=== PATIENT | female | born 1950 | race African-American/Black ===

== ENCOUNTER 2017-06-16 17:29 | Emergency (ER) | payer MEDICAID ==
[2017-06-16 18:02] LABS: APPEARANCE HAZY (CLEAR); BILIRUBIN NEGATIVE (NEGATIVE); COLOR YELLOW (YELLOW); GLUCOSE NEGATIVE (NEGATIVE); KETONE MODERATE mg/dL (NEGATIVE); NITRITE NEGATIVE (NEGATIVE); PROTEIN NEGATIVE (NEGATIVE); SPECIFIC GRAVITY 1.005 (1.005-1.020); UROBILINOGEN NORMAL (NORMAL)
[2017-06-16 18:06] LABS: BACTERIA MANY /hpf (NONE SEEN); RED CELLS - URINE 0-5 /hpf (0-5)
[2017-06-16 18:07] LABS: WHITE CELLS - URINE >50 /hpf (0-5)
[2017-06-16 20:07] LABS: BASOPHILS 0.2 % (0-2); EOSINOPHILS 2.8 % (0-7); HEMATOCRIT 32.7 % (36.0-48.0); HEMOGLOBIN 11.9 g/dL (12-16); IMMATURE GRANULOCYTES 0.1 % (0-5); LYMPHOCYTES 21.6 % (15-50); MCH 24.9 pg (26.0-34.0); MCHC 36.4 g/dL (31.0-37.0); MCV 68.4 fL (80.0-100.0); MEAN PLATELET VOLUME 9.3 fL (7.4-10.4); MONOCYTES 7.1 % (2-11); NEUTROPHILS 68.2 % (40-80); PLATELET COUNT 226 10x3/uL (130-400); RBC 4.78 10x6/uL (4.00-5.40); RDW 19.5 % (11.5-14.5); WBC 8.2 10x3/uL (4.8-10.8)
[2017-06-16 20:20] LABS: ALBUMIN 3.7 g/dL (3.4-5.0); ALKALINE PHOSPHATASE 125 U/L (46-116); ALT (SGPT) 19 U/L (10-68); BILIRUBIN - TOTAL 0.57 mg/dL (0.2-1.3); CALC OSMOLALITY 276 mosm/kg (275-300); CALCIUM 9.6 mg/dL (8.5-10.1); CARBON DIOXIDE 29.8 mmol/L (21.0-32.0); CHLORIDE - SERUM 103 mmol/L (98-107); CREATININE - SERUM 0.5 mg/dL (0.6-1.3); GLUCOSE 104 mg/dL (74-106); POTASSIUM - SERUM 4.5 mmol/L (3.5-5.1); PROTEIN - SERUM 7.9 g/dL (6.4-8.2); SODIUM 140 mmol/L (136-145); UREA NITROGEN 6 mg/dL (7-18); eGFR NON AFRICAN AMERICAN > 90 mL/min (90-120)
== END 2017-06-16 21:34 | disposition home or self-care (01) ==
LOC: D.ER 17:29
PROVIDERS: Emergency Medicine; Family Medicine
DX: N39.0 Urinary tract infection, site not specified (principal)

== ENCOUNTER 2019-04-29 17:45 | Inpatient (IN) | payer MEDICARE ==
[~2019-04-29] VITALS: Ht 167.6 cm; Wt 89.1 kg
[2019-04-29 18:56] LABS: BASOPHILS 0.2 % (0-2); EOSINOPHILS 3.2 % (0-7); HEMATOCRIT 33.6 % (36.0-48.0); HEMOGLOBIN 12.2 g/dL (12-16); IMMATURE GRANULOCYTES 0.2 % (0-5); LYMPHOCYTES 20.3 % (15-50); MCH 25.3 pg (26.0-34.0); MCHC 36.3 g/dL (31.0-37.0); MCV 69.6 fL (80.0-100.0); MEAN PLATELET VOLUME 9.6 fL (7.4-10.4); MONOCYTES 6.3 % (2-11); NEUTROPHILS 69.8 % (40-80); PLATELET COUNT 188 10x3/uL (130-400); RBC 4.83 10x6/uL (4.00-5.40); RDW 20.3 % (11.5-14.5); WBC 8.1 10x3/uL (4.8-10.8)
[2019-04-29 19:10] LABS: CALC OSMOLALITY 286 mosm/kg (275-300); CALCIUM 8.9 mg/dL (8.5-10.1); CARBON DIOXIDE 25.8 mmol/L (21.0-32.0); CHLORIDE - SERUM 106 mmol/L (98-107); CREATININE - SERUM 0.5 mg/dL (0.6-1.3); GLUCOSE 96 mg/dL (74-106); POTASSIUM - SERUM 4.1 mmol/L (3.5-5.1); SODIUM 143 mmol/L (136-145); UREA NITROGEN 18 mg/dL (7-18); eGFR NON AFRICAN AMERICAN > 90 mL/min (90-120)
[2019-04-29 19:18] VITALS: BP 139/103
[2019-04-29 19:21] LABS: AMYLASE - SERUM 39 U/L (25-115); LIPASE 90 U/L (73-393); TROPONIN-I < 0.017 ng/mL (0.000-0.060)
--- NOTE | 2019-04-29 19:55 | NUR ---
pt to ct at this time.
[2019-04-29 20:35] VITALS: BP 176/72
[2019-04-29 21:08] VITALS: BP 182/74
--- NOTE | 2019-04-29 21:08 | NUR ---
IN AND OUT CATH FOR URINE SPECIMEN. STERILE FIELD MAINTAINED. APPROX 50 ML OF CLEAR, YELLOW URINE AT INSERTION, SAMPLE SENT TO LAB, PT TOLERATED WELL. DENIES NEEDS, CALL LIGHT WITHIN REACH, WILL CONTINUE TO MONITOR.
[2019-04-29 21:55] LABS: APPEARANCE CLEAR (CLEAR); BILIRUBIN NEGATIVE (NEGATIVE); COLOR YELLOW (YELLOW); GLUCOSE NEGATIVE (NEGATIVE); KETONE NEGATIVE (NEGATIVE); NITRITE NEGATIVE (NEGATIVE); PROTEIN NEGATIVE (NEGATIVE); UROBILINOGEN NORMAL (NORMAL)
[2019-04-29 21:56] LABS: BACTERIA MODERATE /hpf (NEGATIVE); EPITHELIAL CELLS 0-5 /hpf (0-5); RED CELLS - URINE OCC /hpf (0-5); WHITE CELLS - URINE 0-5 /hpf (NEGATIVE)
[2019-04-29 22:26] VITALS: BP 153/73
[2019-04-30 01:13] VITALS: BP 159/77; Ht 167.6 cm; Wt 89.1 kg
[2019-04-30 04:56] VITALS: BP 162/75
--- NOTE | 2019-04-30 05:46 | NUR ---
0015) rec'd via stretcher from er alert and oriented speech garbled at times talks very fast.incontinent of urine pericare and linen chge.no shinbreakage noted. will continue to observe for any chges and follow current plan of care.
[2019-04-30 06:41] LABS: ALBUMIN 3.5 g/dL (3.4-5.0); ALKALINE PHOSPHATASE 119 U/L (46-116); ALT (SGPT) 9 U/L (10-68); BILIRUBIN - TOTAL 0.79 mg/dL (0.2-1.3); CALC OSMOLALITY 279 mosm/kg (275-300); CALCIUM 8.8 mg/dL (8.5-10.1); CARBON DIOXIDE 27.1 mmol/L (21.0-32.0); CHLORIDE - SERUM 107 mmol/L (98-107); CREATININE - SERUM 0.3 mg/dL (0.6-1.3); GLUCOSE 96 mg/dL (74-106); POTASSIUM - SERUM 3.9 mmol/L (3.5-5.1); PROTEIN - SERUM 7.6 g/dL (6.4-8.2); SODIUM 141 mmol/L (136-145); UREA NITROGEN 11 mg/dL (7-18); eGFR NON AFRICAN AMERICAN > 90 mL/min (90-120)
[2019-04-30 07:37] LABS: BASOPHILS 0.3 % (0-2); EOSINOPHILS 4.4 % (0-7); HEMATOCRIT 33.8 % (36.0-48.0); HEMOGLOBIN 12.1 g/dL (12-16); IMMATURE GRANULOCYTES 0.3 % (0-5); LYMPHOCYTES 27.8 % (15-50); MCH 24.8 pg (26.0-34.0); MCHC 35.8 g/dL (31.0-37.0); MCV 69.3 fL (80.0-100.0); MONOCYTES 5.8 % (2-11); NEUTROPHILS 61.4 % (40-80); PLATELET COUNT 162 10x3/uL (130-400); RBC 4.88 10x6/uL (4.00-5.40); RDW 20.4 % (11.5-14.5); WBC 7.1 10x3/uL (4.8-10.8)
--- NOTE | 2019-04-30 08:10 | NUR ---
REPORT RECIEVED. PT RESTING QUIETLY. RISE AND FALL OF CHEST NOTED. PT HAS A R HAND PIV THAT IS SL. RR EVEN AND UNLABORED NO DISTRESS NOTED. BED LOCKED AND IN LOWEST POSITION, CALL LIGHT WITHIN REACH. WILL CTM
[2019-04-30 12:20] VITALS: BP 150/78
[2019-04-30 12:27] VITALS: BP 143/70
--- NOTE | 2019-04-30 13:08 | NUR ---
PT HAS A 3 LARGE LIGHT BROWN LIQUID BM SINCE 0800. SPOKE TO SLAVA TAI, HE DID NOT WANT ME TO GIVE THE SOAP KI ENEMA AT THIS TIME. WLL CTM
[2019-04-30 15:58] VITALS: BP 156/89
--- NOTE | 2019-04-30 16:42 | NUR ---
I have reviewed this patient and I concur with the Shift Assessment completed by the Licensed Practical Nurse today this shift.
--- NOTE | 2019-04-30 19:48 | NUR ---
REPORT RECEIVED, WILL CONTINUE POC. PATIENT IS AAOX4, SEMI-FOWLERS POSITION. SENIOR OFFICER AT BEDSIDE, PATIENT JUST HAD BM AND WAS CLEANED UP. NO S/S OF DISTRESS OBSERVED, RR EVEN AND UNLABORED ON ROOM AIR. PATIENT ASKING FOR TYLENOL. PATIENT DENIES OTHER NEEDS. CL IN REACH, BED LOCKED AND LOWERED. WILL CTM.
[2019-04-30 20:39] VITALS: BP 172/82
[2019-05-01 00:15] VITALS: BP 145/71
--- NOTE | 2019-05-01 03:09 | NUR ---
I have reviewed this patient and I concur with the Shift Assessment completed by the Licensed Practical Nurse today this shift.
[2019-05-01 04:45] VITALS: BP 151/51
[2019-05-01 07:50] VITALS: BP 162/91
--- NOTE | 2019-05-01 07:55 | NUR ---
REPORT RECEIVED. WILL CONTINUE WITH POC. PT CURRENTLY LYING SUPINE. CALL LIGHT W/I REACH. PT IS AAO. RR EVEN AND UNLABORED ON RA. R.HAND PIV IS SALINE LOCKED. NO S/S OF DISTRESS NOTED. PT DENIES ANY NEEDS. WILL CTM.
--- NOTE | 2019-05-01 09:56 | MORECARE ---
CASE MANAGEMENT DISCHARGE SUMMARY PATIENT: MYA AGUILAR UNIT: [id number] ADM DATE: 04/30/19 AGE: 68 : 50 SEX: F ROOM/BED: D.2100 AUTHOR: MERRITT VILLAVICENCIO PHYSICIAN: REFERRING PHYSICIAN: ARIAN MONTANA MD DATE OF SERVICE: 05/01/19 Discharge Plan Patient Name: MYA AGUILAR [facility] [facility] 1950 Planned Disposition: Nursing Facility ARACELI Cert Anticipated Discharge Date: 05/01/19 Discharge Date: Expected LOS: 1 Initial Reviewer: [email or web address] Initial Review Date: 04/29/2019 Generated: 05/01/19 10:56 am External [facility] Next Contact Date: 05/01/2019 Service Request Date: Service Type: Resolution: Reviewer: Comments: Patient Name: MYA AGUILAR Page 19202 at 0956 All edits/amendments must be made on the electronic document DICTATION DATE: 05/01/19955 SEASONAL SALES ASSOCIATE: MAURISIO 05/01/19955 RPT#: [id number] PR DATE: STATUS: ADM IN [facility] [address] [place] [address] END OF REPORT
--- NOTE | 2019-05-01 10:03 | MORECARE ---
CASE MANAGEMENT DISCHARGE SUMMARY PATIENT: MYA AGUILAR UNIT: [id number] ADM DATE: 04/30/19 AGE: 68 : 50 SEX: F ROOM/BED: D.2104 AUTHOR: MERRITT VILLAVICENCIO PHYSICIAN: REFERRING PHYSICIAN: ARIAN MONTANA MD DATE OF SERVICE: 05/01/19 Discharge Plan Patient Name: MYA AGUILAR [facility] : 1950 Planned Disposition: Nursing Facility ARACELI Cert Anticipated Discharge Date: 05/01/19 Discharge Date: Expected LOS: 1 Initial Reviewer: [email or web address] Initial Review Date: 04/29/2019 Generated: 05/01/19 11:02 am DCPIA - Discharge Planning Initial Assessment Updated by [id number]: Donnie Tran on 05/01/19 10:01 am * Is the patient Alert and Oriented? Yes * How many steps to enter\exit or inside your home? NONE * PCP DR. MONTANA * Pharmacy [facility] [place] * Preadmission Environment Sales Support Coordinator Mcc * Facility Name [facility] * ADLs Total Dependent * Equipment Other * Other Equipment ALL MEDICAL EQUIPMENT PROVIDED BY [facility] * List name and contact numbers for known caregivers / representatives who currently or will assist patient after discharge: SATURDAY JAMES ANTHONYR, * Verbal permission to speak to the caregivers and representatives has been obtained from the patient. Yes * Community resources currently utilized None * Please name any agencies selected above. NONE * Additional services required to return to the preadmission environment? No * Can the patient safely return to the preadmission environment? Yes * Has this patient been hospitalized within the prior 30 days at any hospital? No Last DP export: 05/01/19 8:56 Patient Name: MYA AGUILAR Page 46043 at 1003 All edits/amendments must be made on the electronic document DICTATION DATE: 05/01/19 1002 TEACHING ARTIST: MAURISIO 05/01/19 1002 RPT#: [id number] DC DATE: STATUS: ADM IN [facility] [address] [place] [address] END OF REPORT
--- NOTE | 2019-05-01 10:10 | MORECARE ---
CASE MANAGEMENT DISCHARGE SUMMARY PATIENT: MYA AGUILAR UNIT: [id number] ADM DATE: 04/30/19 AGE: 68 : 50 SEX: F ROOM/BED: D.8502 AUTHOR: SAUD,DOC PHYSICIAN: REFERRING PHYSICIAN: ARIAN MONTANA MD DATE OF SERVICE: 05/01/19 Discharge Plan Patient Name: MYA AGUILAR Facility: [facility]:[place] : 1950 Planned Disposition: Nursing Facility ARACELI Cert Anticipated Discharge Date: 05/01/19 Discharge Date: Expected LOS: 1 Initial Reviewer: YUNIER Initial Review Date: 04/29/2019 Generated: 05/01/19 11:09 am Comments DCP- Discharge Planning Updated by [id number]: Donnie Tran on 05/01/19 9:[address] Patient Name: MYA AGUILAR Admission Status: ER Accout number: [id number] Admission Date: 04-30-2019 : 1950 Admission Diagnosis: Attending: ARIAN MONTANA Current LOS: 1 Anticipated DC Date: 05-01-2019 Planned Disposition: Nursing Facility ARACELI Cert Primary Insurance: MEDICARE A & B PLANNED EXTERNAL PROVIDER: [facility], LIGHT BULB REPLACER CARE RETURN Discharge Planning Comments: CM RECEIVED DISCHARGE ORDER, MET WITH PT IN ROOM. PT REPORTS LIVING AT [facility] FOR A "LONG TIME". PT'S EMERGENCY CONTACT IS SATURDAY. [facility] TODAY. PT WAS NOT ABLE TO SIGN THE CONSENT FORM. CM CALLED PT'S DAUGHTER, SATURDAY RAJ, , LEFT MESSAGE ASKING FOR RETURN CALL. CM CALLED [facility], , SPOKE TO DIANE, NURSE, WHO INFORMED CM THAT PT IS [facility] LIGHT BULB REPLACER CARE PATIENT. THEY WILL ACCEPT TODAY. CM FAXED DISCHARGE INFORMATION TO [facility], . NURSE REPORT TO BE CALLED TO DIANE OF [facility], . PT TO TRANSPORT VIA AMBULANCE. Wellness Nurse Rn: Donnie Tran DCPIA - Discharge Planning Initial Assessment Updated by [id number]: Donnie Tran on 05/01/19 10:01 am * Is the patient Alert and Oriented? Yes * How many steps to enter\\exit or inside your home? NONE * PCP DR. MONTANA * Pharmacy [facility] [place] * Preadmission Environment [facility]ci * Facility Name [facility] * ADLs Total Dependent * Equipment Other * Other Equipment ALL MEDICAL EQUIPMENT PROVIDED BY FACILTY * List name and contact numbers for known caregivers / representatives who currently or will assist patient after discharge: SATURDAY JAMES ANTHONYR, * Verbal permission to speak to the caregivers and representatives has been obtained from the patient. Yes * Community resources currently utilized None * Please name any agencies selected above. NONE * Additional services required to return to the preadmission environment? No * Can the patient safely return to the preadmission environment? Yes * Has this patient been hospitalized within the prior 30 days at any hospital? No Coverage Notice Reviewer: [id number] - Donnie Tran Notice Issued Date-Time: 05/01/2019 9:23 Notice Type: Patient Choice Letter Notice Delivered To: Patient Relationship to Patient: Pitch Gatherer Name: Delivery Method: HAND - Hand Delivered Tish Days: Prior Verbal Notification: Recipient Understood Notice: Yes Recipient Signature: Med Rec Note Co-signed by Attending: Coverage Notice Comment: [facility] Last DP export: 05/01/19 9:03 Patient Name: MYA AGUILAR Page 80180 at 1010 All edits/amendments must be made on the electronic document DICTATION DATE: 05/01/19 100 PIERCING MACHINE OPERATOR: MAURISIO 05/01/19 100 RPT#: [id number] DC DATE: STATUS: ADM IN [facility] [address] [place] [address] END OF REPORT
--- NOTE | 2019-05-01 10:36 | NUR ---
ATTEMPTED TO CALL REPORT TO [facility] TWICE. NO ANSWER. WILL CONTINUE ATTEMPTING TO CALL. WILL CTM.
--- NOTE | 2019-05-01 11:10 | NUR ---
PT DISCHARGED BACK TO [facility] VIA STRETCHER WITH [employer] [facility]. ALL BELONGINGS TAKEN WITH PT. PIV REMOVED WITH CATHETER TIP FULLY INTACT. ATTEMPTED TO CALL REPORT FIVE DIFFERENT TIMES AND WAS NEVER ABLE TO GET IN TOUCH. DISCHARGE PAPERWORK SENT WITH [employer].
--- NOTE | 2019-05-01 12:23 | MORECARE ---
CASE MANAGEMENT DISCHARGE SUMMARY PATIENT: MYA AGUILAR UNIT: [id number] ADM DATE: 04/30/19 AGE: 68 : 50 SEX: F ROOM/BED: D.2106 AUTHOR: SAUD,DOC PHYSICIAN: REFERRING PHYSICIAN: ARIAN MONTANA MD DATE OF SERVICE: 05/01/19 Discharge Plan Patient Name: MYA AGUILAR Facility: [facility]:[place] : 1950 Planned Disposition: Nursing Facility ARACELI Cert Anticipated Discharge Date: 05/01/19 Discharge Date: 05/01/2019 Expected LOS: 1 Initial Reviewer: YUNIER Initial Review Date: 04/29/2019 Generated: 05/01/19 1:23 pm Comments DCP- Discharge Planning Updated by [id number]: Donnie Tran on 05/01/19 9:[address] Patient Name: MYA AGUILAR Admission Status: ER Accout number: [id number] Admission Date: 04-30-2019 : 1950 Admission Diagnosis: Attending: ARIAN MONTANA Current LOS: 1 Anticipated DC Date: 05-01-2019 Planned Disposition: Nursing Facility ARACELI Cert Primary Insurance: MEDICARE A & B PLANNED EXTERNAL PROVIDER: [facility], CRM ARCHITECT CARE RETURN Discharge Planning Comments: CM RECEIVED DISCHARGE ORDER, MET WITH PT IN ROOM. PT REPORTS LIVING AT [facility] [place] FOR A "LONG TIME". PT'S EMERGENCY CONTACT IS SATURDAY. PT FEELS SAFE AT THE [facility] AND WILL RETURN THERE TODAY. PT WAS NOT ABLE TO SIGN THE CONSENT FORM. CM CALLED PT'S DAUGHTER, SATURDAY RAJ, , LEFT MESSAGE ASKING FOR RETURN CALL. CM CALLED [facility], , SPOKE TO DIANE, NURSE, WHO INFORMED CM THAT PT IS TOTAL CARE [employer] ARCHITECT CARE PATIENT. THEY WILL ACCEPT TODAY. CM FAXED DISCHARGE INFORMATION TO [facility], . NURSE REPORT TO BE CALLED TO DIANE OF [facility], . PT TO TRANSPORT VIA AMBULANCE. Tafe Registrar: Donnie Tran DCPIA - Discharge Planning Initial Assessment Updated by [id number]: Donnie Tran on 05/01/19 10:01 am * Is the patient Alert and Oriented? Yes * How many steps to enter\\exit or inside your home? NONE * PCP DR. MONTANA * Pharmacy [facility] [place] * Preadmission Environment Lag Screwer Longterm * Facility Name [facility] * ADLs Total Dependent * Equipment Other * Other Equipment ALL MEDICAL EQUIPMENT PROVIDED BY FACILTY * List name and contact numbers for known caregivers / representatives who currently or will assist patient after discharge: SATURDAY ROSENDO ANTHONY, * Verbal permission to speak to the caregivers and representatives has been obtained from the patient. Yes * Community resources currently utilized None * Please name any agencies selected above. NONE * Additional services required to return to the preadmission environment? No * Can the patient safely return to the preadmission environment? Yes * Has this patient been hospitalized within the prior 30 days at any hospital? No Coverage Notice Reviewer: [id number] - Donnie Tran Notice Issued Date-Time: 05/01/2019 9:23 Notice Type: Patient Choice Letter Notice Delivered To: Patient Relationship to Patient: Livestock Buyer Name: Delivery Method: HAND - Hand Delivered Tish Days: Prior Verbal Notification: Recipient Understood Notice: Yes Recipient Signature: Med Rec Note Co-signed by Attending: Coverage Notice Comment: [facility] Last DP export: 05/01/19 9:10 Patient Name: MYA AGUILAR Page 69048 at 1223 All edits/amendments must be made on the electronic document DICTATION DATE: 05/01/191222 GENERAL MANAGER FARM: MAURISIO 05/01/19 1223 RPT#: [id number] DC DATE:05/01/19 STATUS: DIS IN [facility] [address] [place] [address] END OF REPORT
== END 2019-05-01 11:12 | DRG 392 ==
LOC: D.ER 17:45 → OBSVTIME 22:16 → D.M2 22:16 → D.ER 22:30 → D.M2 04-30 15:25
PROVIDERS: Family Medicine; ADMIT Legal Medicine; ATTEND Legal Medicine
DX: K59.00 Constipation, unspecified (principal); D35.01 Benign neoplasm of right adrenal gland; I10 Essential (primary) hypertension; K21.9 Gastro-esophageal reflux disease without esophagitis; D57.1 Sickle-cell disease without crisis; Z86.73 Personal history of transient ischemic attack (TIA), and cerebral infarction without residual deficits

== ENCOUNTER → 2019-05-08 09:06 | Outpatient (CLI) | payer MEDICARE ==
[2019-04-30 01:13] VITALS: BMI 31.7
== END | disposition home or self-care (01) ==
LOC: D.CT 09:06
PROVIDERS: ATTEND Legal Medicine
DX: K59.00 Constipation, unspecified (principal)